=== PATIENT | female | born 1940 ===

== ENCOUNTER 2018-04-06 09:39 | Outpatient (CLI) | payer MEDICARE, OTHER ==
[~2018-04-06] VITALS: Ht 162.6 cm; Wt 90.7 kg
[2018-04-06] MEDS ORDERED: DOCU250C75 PO (09:58)
[2018-04-06] MEDS ORDERED: HYDR-3820 PO (09:58)
[2018-04-06] MEDS ORDERED: OMEP40CA36 PO (09:58)
[2018-04-06] MEDS ORDERED: ALB0.5V IH (09:58)
[2018-04-06] MEDS ORDERED: DULO30CA48 PO (09:58)
[2018-04-06] MEDS ORDERED: HYDR200T46 PO (09:58)
[2018-04-06] MEDS ORDERED: GABA-488 PO (09:58)
[2018-04-06] MEDS ORDERED: ALPR0.5T7 PO (09:58)
[2018-04-06] MEDS ORDERED: ROSU10TA26 PO (09:58)
[2018-04-06] MEDS ORDERED: CLOP75TA69 PO (10:01)
[2018-04-06] MEDS ORDERED: HYDR25TA4 PO (10:01)
== END 2018-04-06 10:05 | disposition home or self-care (01) ==
LOC: PREOP 09:39
PROVIDERS: ATTEND Orthopaedic Surgery Orthopaedic Surgery of the Spine
DX: Z01.818 Encounter for other preprocedural examination (principal)